=== PATIENT | female | born 1945 | race Caucasian/White ===

== ENCOUNTER 2021-09-14 12:43 | Emergency (ER) | payer MEDICARE ==
[~2021-09-14] VITALS: Ht 152.4 cm; Wt 77.1 kg
--- NOTE | 2021-09-14 12:47 | NUR ---
AMBULATED TO ER BED 5 WITH FAMILY
[2021-09-14 12:58] VITALS: BP 187/80
--- NOTE | 2021-09-14 12:59 | NUR ---
DR THOMPSON AT BEDSIDE EVALUATING PT
[2021-09-14] MEDS ORDERED: FLUORESCEIN OPTH STRIP 1 MG OP ONE (13:05)
[2021-09-14] MEDS ORDERED: TETRACAINE HCL/PF 0.5% OPTH 4 ML BTL OP ONE (13:05)
--- NOTE | 2021-09-14 13:30 | NUR ---
76 Y/O F COMPLAINS OF FACIAL PAIN SINCE 09/11/21. 05/21 PAIN AND ITCH WORSENED LAST NIGHT 09/13/21. PT RECALLS FEVER LAST NIGHT 09/13/21. LESIONS NOTED TO R CHEEK, NOSE, R EYELID.
[2021-09-14] MEDS ORDERED: BACTO TP (13:45)
[2021-09-14] MEDS ORDERED: VALA1TAB40 PO (13:45)
[2021-09-14] MEDS ORDERED: CEPH-588 PO (13:45)
[2021-09-14 14:00] VITALS: BP 187/80
--- NOTE | 2021-09-14 14:00 | NUR ---
Patient discharged with v/s stable. Written and verbal after care instructions given and explained. Patient alert, oriented and verbalized understanding of instructions. Ambulatory with steady gait. All questions addressed prior to discharge. ID band removed. Patient advised to follow up with PMD. Rx of BACTROBAN, KEFLEX, VALACYCLOVIR given. Patient educated on indication of medication including possible reaction and side effects. Opportunity to ask questions provided and answered.
== END 2021-09-14 14:00 | disposition home or self-care (01) ==
LOC: MED 12:43
DX: B02.9 Zoster without complications (principal); I10 Essential (primary) hypertension; Z79.899 Other long term (current) drug therapy
CPT/HCPCS: 99283